=== PATIENT | male | born 2000 | race Caucasian/White ===

== ENCOUNTER 2022-12-20 22:36 | Emergency (ER) | payer OTHER, SELFPAY ==
[2022-12-20 22:38] VITALS: BP 142/63; PULSE 87; RESP 18; TEMP 36.7; O2SAT 98; BMI 38.3
[2022-12-20 23:09] VITALS: BP 117/70; PULSE 77; RESP 15; O2SAT 97
--- NOTE | 2022-12-20 23:15 | ED.RN ---
WHILE THIS RN COMPLETING ASSESSMENT, PT STATES HE DOES NOT FEEL SAFE AT HOME. PER PT, PARENTS ARE HARD TO BE AROUND. PT DENIES BEING THREATENED OR HARMED AT HOME. PT DENIES BEING DENIED OF NECESSITIES OF DAILY LIVING AND DENIES FINANCES BEING USED AGAINST HIM. PT DENIES WANTING ANY RESOURCES AVAILABLE. PT DENIES THOUGHTS OF HARMING SELF OR OTHERS. 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 DR. JONES AWARE.
--- NOTE | 2022-12-20 23:20 | EKG12_ITS ---
Test Reason : CP Blood Pressure : / mmHG Vent. Rate : 078 BPM Atrial Rate : 078 BPM P-R Int : 158 ms QRS Dur : 100 ms QT Int : 372 ms P-R-T Axes : 036 061 024 degrees QTc Int : 424 ms Normal sinus rhythm Normal ECG Confirmed by ALLEN FONTENOT MD ([id number]), video effects editor JV BENAVIDES ([id number]) on 12/21/2022 12:18:06 PM Referred By: BB Confirmed By:ALLEN FONTENOT MD
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
--- NOTE | 2022-12-20 23:30 | RAD_ITS ---
INDICATION: chest pain EXAMINATION/TECHNIQUE: X-RAY - XR Chest 2 Views COMPARISON: No relevant prior comparison study available FINDINGS: LINES/DEVICES: None. LUNGS: The lungs are well expanded. Mild retrocardiac opacity. No edema or effusion. No pneumothorax. MEDIASTINUM AND CARDIOVASCULAR STRUCTURES: Cardiac silhouette not enlarged. Central airways and mediastinal contour are unremarkable. BONES AND SOFT TISSUES: Unremarkable. RAD/Chest PA and Lateral IMPRESSION: Retrocardiac opacity which could represent atelectasis or pneumonia. Electronically Signed: Abdulkadir Hutson MD at 23:51 EDT ,
[2022-12-21 00:17] VITALS: BP 115/77; PULSE 70; RESP 14; O2SAT 97
== END 2022-12-21 00:20 | disposition home or self-care (01) ==
PROVIDERS: Emergency Provider Emergency Medicine; PCP Physician Assistant; Visit Provider Emergency Medicine
DX: K21.9 Gastro-esophageal reflux disease without esophagitis (principal); R07.2 Precordial pain
CPT/HCPCS: 71046; 93005; 99283

== ENCOUNTER 2023-09-05 17:54 | Emergency (ER) | payer OTHER, SELFPAY ==
[2023-09-05 17:55] VITALS: BP 141/67; PULSE 90; RESP 14; TEMP 36.6; O2SAT 96; BMI 37.5
[2023-09-05] MEDS: Acetaminophen 500 MG Tablet 1000 MG PO (18:25)
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
[2023-09-05 18:46] VITALS: BP 139/72; PULSE 82; RESP 16; TEMP 36.6; O2SAT 99
== END 2023-09-05 19:03 | disposition home or self-care (01) ==
LOC: ED 18:49
PROVIDERS: Emergency Provider Emergency Medicine; PCP Physician Assistant; Visit Provider Emergency Medicine
DX: S00.83XA Contusion of other part of head, initial encounter (principal); R68.84 Jaw pain; Y00.XXXA Assault by blunt object, initial encounter; K21.9 Gastro-esophageal reflux disease without esophagitis
CPT/HCPCS: 99282